=== PATIENT | male | born 1985 | race Caucasian/White ===

== ENCOUNTER 2024-06-17 14:48 | Emergency (ER) | payer OTHER, SELFPAY ==
[~2024-06-17] VITALS: Ht 180.3 cm; Wt 80.5 kg
[2024-06-17] MEDS ORDERED: IBUP-1022 PO (16:30)
[2024-06-17 16:41] VITALS: BP 128/76; TEMP 97.4; O2SAT 97
== END 2024-06-17 16:53 | disposition home or self-care (01) ==
LOC: M ED 14:48
DX: S43.52XA Sprain of left acromioclavicular joint, initial encounter (principal); Y92.410 Unspecified street and highway as the place of occurrence of the external cause; Y93.9 Activity, unspecified; Y99.9 Unspecified external cause status; Z79.1 Long term (current) use of non-steroidal anti-inflammatories (NSAID)

== ENCOUNTER → 2024-06-28 | Outpatient (CLI) | payer OTHER ==
[~2024-06-28] MED LIST: IBUP-1022 PO
== END ==
LOC: M SOG 14:19
PROVIDERS: ATTEND Physician Assistant
DX: M25.512 Pain in left shoulder (principal)

== ENCOUNTER 2025-03-12 12:13 | Emergency (ER) | payer MEDICAID, OTHER ==
[~2025-03-12] VITALS: Ht 177.8 cm; Wt 76.6 kg
[~2025-03-12 12:13] MED LIST changes: -IBUP-1022 PO; +IBUP600T42 PO
[2025-03-12 12:15] VITALS: TEMP 98.2
[2025-03-12 13:21] LABS: KETONE, URINE AUTO RFX NEGATIVE (NEGATIVE); LEUKOCYTE ESTERASE UR AUTO RFX NEGATIVE (NEGATIVE); MUCUS, URINE RFX SMALL (NEGATIVE); NITRITE, URINE AUTO RFX NEGATIVE (NEGATIVE); RBC, URINE AUTO RFX 0 /HPF (0-3); SQUAM EPITHELIAL CELL UR AURFX 0 /HPF (0-6); WBC, URINE AUTO RFX 0 /HPF (0-3)
[2025-03-12 14:42] LABS: Trichomonas vaginalis (AMP) NOT DETECTED (NEGATIVE)
[2025-03-12 15:06] LABS: GC DNA AMPLIFICATION NEGATIVE (NEGATIVE)
[2025-03-12] MEDS ORDERED: PYRI1TAB5 PO (15:27)
[2025-03-12 15:33] VITALS: BP 130/75; O2SAT 100
== END 2025-03-12 15:34 | disposition home or self-care (01) ==
LOC: M ED 12:13
DX: R30.0 Dysuria (principal); F17.210 Nicotine dependence, cigarettes, uncomplicated; Z79.1 Long term (current) use of non-steroidal anti-inflammatories (NSAID); Z79.899 Other long term (current) drug therapy

== ENCOUNTER 2025-03-26 14:09 | Emergency (ER) | payer OTHER ==
[~2025-03-26] VITALS: Ht 177.8 cm; Wt 78.3 kg
[~2025-03-26 14:09] MED LIST changes: +PYRI1TAB5 PO
[2025-03-26 14:10] VITALS: BP 134/83; TEMP 97.2; O2SAT 100
== END 2025-03-26 16:30 | disposition left against medical advice (07) ==
LOC: M ED 14:09
DX: Z53.21 Procedure and treatment not carried out due to patient leaving prior to being seen by health care provider (principal)

== ENCOUNTER 2025-03-27 14:35 | Emergency (ER) | payer OTHER ==
[~2025-03-27] VITALS: Ht 177.8 cm; Wt 77.4 kg
[2025-03-27 14:38] VITALS: BP 134/80; TEMP 97.1; O2SAT 100
== END 2025-03-27 17:07 | disposition left against medical advice (07) ==
LOC: M ED 14:35
DX: Z53.21 Procedure and treatment not carried out due to patient leaving prior to being seen by health care provider (principal)

== ENCOUNTER 2025-04-28 13:36 | Emergency (ER) | payer OTHER ==
[~2025-04-28] VITALS: Ht 177.8 cm; Wt 80.2 kg
[2025-04-28] MEDS ORDERED: MIRT-10 (13:42)
[2025-04-28 16:41] VITALS: BP 124/75; TEMP 97.4; O2SAT 99
== END 2025-04-28 18:00 | disposition home or self-care (01) ==
LOC: M ED 13:36
DX: S43.102A Unspecified dislocation of left acromioclavicular joint, initial encounter (principal); Y92.9 Unspecified place or not applicable; Y93.9 Activity, unspecified; Y99.9 Unspecified external cause status; W01.0XXA Fall on same level from slipping, tripping and stumbling without subsequent striking against object, initial encounter; Z79.899 Other long term (current) drug therapy